=== PATIENT | female | born 1970 | race Hispanic/Latino ===

== ENCOUNTER 2022-11-03 21:16 | Emergency (ER) | payer MEDICAID ==
[2022-11-03] MEDS ORDERED: ALPRAZOLAM 0.5 MG TABLET PO ONE (22:00)
[2022-11-03 22:17] VITALS: BP 129/74
== END 2022-11-03 23:11 | disposition home or self-care (01) ==
LOC: EDH 21:16
DX: F41.9 Anxiety disorder, unspecified (principal); E78.00 Pure hypercholesterolemia, unspecified; I10 Essential (primary) hypertension